=== PATIENT | female | born 1990 | race Caucasian/White ===

== ENCOUNTER 2022-02-19 08:14 | Outpatient (CLI) | payer BC, SELFPAY ==
--- NOTE | 2022-02-19 08:15 | CRLHL7_ITS ---
For Patients: As a result of the Cures Act, medical imaging exams and procedure reports are released immediately into your electronic medical record. You may view this report before your referring provider. If you have questions, please contact your health care provider. INDICATION: First trimester scan, establish dates. COMPARISON: None. TECHNIQUE: Real-time torres-scale imaging of the pelvis was performed. FINDINGS: Sonographic imaging demonstrates a single living intrauterine gestation. The embryo demonstrates a regular cardiac rate measuring 174 beats per minute. The embryo`s crown-rump length measurement of 2.1 cm corresponds to a gestational age of 8 weeks 5 days with a sonographic due date of September 26, 2022. There is a normal-appearing yolk sac measuring 2.9 mm. There are no gross abnormalities noted within the embryo at this early state of development. The placenta has not yet developed. The gestational sac has a normal appearance and there is no evidence of a perigestational hemorrhage. The amount of fluid within the sac appears appropriate for gestational age. The cervix is closed. The myometrium appears normal. The ovaries are of normal size. The right ovary measures 2.9 x 4.7 x 1.3 cm. The left ovary measures 5.1 x 3.6 x 4.1 cm. Small corpus luteum cyst of on the left. There are no suspicious fluid collections noted in the cul-de-sac. IMPRESSION: Normal first trimester OB ultrasound exam. Gestational age calculated at 8 weeks 5 days with a sonographic due date of September 26, 2022. Dictated by Darrion Ibarra MD @ 02/19/2022 10:08:21 AM (Electronically Signed)
== END 2022-02-19 08:15 | disposition home or self-care (01) ==
LOC: US 08:15
PROVIDERS: Visit Provider Physician Assistant
DX: Z34.91 Encounter for supervision of normal pregnancy, unspecified, first trimester (principal); Z3A.08 8 weeks gestation of pregnancy
CPT/HCPCS: 76817; 86592; 86703; 86762; 86787; 86803; 86850; 86900; 86901; 87086; 87340; 87491; 87591

== ENCOUNTER 2022-02-19 09:31 | Outpatient (CLI) | payer BC, SELFPAY ==
[2022-02-19 12:28] LABS: Hepatitis B Surface Antigen* Negative (Negative)
[2022-02-19 13:31] LABS: Hepatitis C Virus Antibody* Negative (Negative)
[2022-02-19 15:49] LABS: Chlamydia DNA Amplified* NOT DETECTED (No Detected); GC DNA Amplified* NOT DETECTED (No Detected)
[2022-02-19 16:37] LABS: HIV 1/2/P24 Combo Screen* Negative (Negative)
[2022-02-20 15:37] LABS: Rapid Plasma Reagin (RPR) Non Reactive (Non Reactive)
[2022-02-20 17:34] LABS: Varicella-Zoster Virus Ab, IgG 740.2 IV
[2022-02-20 17:39] LABS: Rubella Antibody IgG 16.3 IU/mL
== END 2022-02-19 09:32 | disposition home or self-care (01) ==
PROVIDERS: Visit Provider Physician Assistant
DX: Z34.91 Encounter for supervision of normal pregnancy, unspecified, first trimester (principal); Z3A.08 8 weeks gestation of pregnancy; Z12.4 Encounter for screening for malignant neoplasm of cervix
CPT/HCPCS: 86592; 86703; 86762; 86787; 86803; 86850; 86900; 86901; 87086; 87340; 87491; 87591; 87624; 88175

== ENCOUNTER 2022-05-14 12:14 | Outpatient (CLI) | payer BC, SELFPAY ==
--- NOTE | 2022-05-14 12:15 | CRLHL7_ITS ---
For Patients: As a result of the Century Cures Act, medical imaging exams and procedure reports are released immediately into your electronic medical record. You may view this report before your referring provider. If you have questions, please contact your health care provider. INDICATION: Evaluate anatomy. COMPARISON: 02/19/2022 TECHNIQUE: Real time torres scale imaging of the fetus was performed as well as color Doppler analysis of the umbilical vessels. FINDINGS: Sonographic imaging demonstrates a single living intrauterine gestation. Fetus demonstrates a regular cardiac rate of 150 beats per minute. Fetus has a variable position. The placenta lies fundal posterior without evidence of placenta previa. The edge of the placenta is located 7.6 cm from the internal cervical os. Amniotic fluid volume appears normal. Single deepest vertical pocket: 3.6 cm. The cervix is closed and measures 4.0 cm in length. The composite ultrasound gestational age is calculated at 20 weeks 5 days with an estimated sonographic due date of 09/26/2022. The estimated weight is 377 grams which lies at the 49th %. The following biometric measurements were obtained: Biparietal diameter: 5.0 cm/21 weeks 1 day 69th% Head circumference: 18.2 cm/20 weeks 4 days 35th% Abdominal circumference: 15.4 cm/20 weeks 4 days 40th% Femur length: 3.5 cm/21 weeks 0 days 51st% The HC/AC ratio measures: 1.18 range (1.06-1.25) On anatomic survey, there is a normal appearance of the cerebral ventricles, cavum septi pellucidi, cisterna magna and cerebellum. The nose, lips, and facial profile appear normal. The cervical, thoracic and lumbar spine are well visualized and appear normal. There is a normal four-chamber heart view and the left and right ventricular outflow tracts appear normal. The diaphragm and stomach appear normal. The kidneys and bladder also appear normal. There is a normal three-vessel cord and cord insertion site. The four extremities appear normal. IMPRESSION: Normal OB ultrasound exam with concordance of clinical and sonographic dating. No intrinsic abnormalities noted on anatomic survey. Dictated by Dario Mcgrath MD @ 05/14/2022 4:36:54 PM (Electronically Signed)
== END 2022-05-14 12:15 | disposition home or self-care (01) ==
LOC: US 12:14
PROVIDERS: Visit Provider Obstetrics & Gynecology
DX: Z34.92 Encounter for supervision of normal pregnancy, unspecified, second trimester (principal); Z3A.20 20 weeks gestation of pregnancy
CPT/HCPCS: 76805

== ENCOUNTER 2022-07-02 08:45 | Outpatient (CLI) | payer BC, SELFPAY | END 2022-07-02 08:46 | disposition home or self-care (01) | LOC: NFLDREF 07-04 05:24 | PROVIDERS: Visit Provider Physician Assistant | DX: Z34.92 Encounter for supervision of normal pregnancy, unspecified, second trimester (principal); Z3A.27 27 weeks gestation of pregnancy | CPT/HCPCS: 86592 ==

== ENCOUNTER 2022-07-08 08:09 | Outpatient (CLI) | payer BC, SELFPAY | END 2022-07-08 08:10 | disposition home or self-care (01) | LOC: NFLDREF 07-09 03:22 | PROVIDERS: Visit Provider Physician Assistant | DX: Z34.93 Encounter for supervision of normal pregnancy, unspecified, third trimester (principal) | CPT/HCPCS: 82951; 82952 ==

== ENCOUNTER 2022-09-19 12:34 | Inpatient (IN) | payer BC, SELFPAY ==
[2022-09-19] VITALS (33 sets, daily range): BP systolic 97–138; BP diastolic 51–76; PULSE 87–146; RESP 16; TEMP 36.6–36.8; O2SAT 97–100; BMI 33.8
[2022-09-19 12:13] LABS: Amnisure Rom* POSITIVE
[2022-09-19 15:43] LABS: Basophils Absolute Auto 0.03 K/uL (0.00-0.30); Basophils Percent Auto 0.3 % (0.0-3.0); Eosinophils Absolute Auto 0.03 K/uL (0.00-0.50); Eosinophils Percent Auto 0.3 % (0.0-7.0); Hematocrit 38.9 % (33.0-51.0); Hemoglobin* 13.2 gm/dL (12.0-16.0); Immature Granulocytes Abs Auto 0.05 K/uL (0.00-0.30); Immature Granulocytes Pct Auto 0.5 %; Lymphocytes Percent Auto 19.3 % (20-44); Mean Corpuscular HGB Conc 34 gm/dL (32-36); Mean Corpuscular Hemoglobin 29 pg (26-34); Mean Corpuscular Volume 85 fL (80-100); Monocytes Percent Auto 6.9 % (0.0-11.0); Neutrophils Percent Auto 72.7 % (42.0-72.0); Platelet Count* 222 K/uL (140-440); RDW Coefficient of Variation % 12.4 % (11.5-15.5); Red Blood Count 4.56 m/uL (4.00-5.20)
[2022-09-19 15:49] LABS: Slide Review Reflex No
[2022-09-19] MEDS: LACTATED RINGERS 1000 ML 1,000 ML 125 ML IV (16:01)
[2022-09-19] MEDS: OXYTOCIN 30 unit/500 ML in NS 30 UNIT/500 ML BAG IVPB (16:02)
--- NOTE | 2022-09-19 17:02 | P.LDBA_ITS ---
Subjective History of Present Illness Date Seen: 09/19/22 Narrative: Patient is being admitted to Labor and Delivery for delivery after SROM. She is a 32 year old at 39 0/7 weeks gestation. Her full history and physical was dictated by Dr. Hoffman on 09/04/22 . Please see this for details. Specific Issues/Plans Father of baby: Matthew. Baby: surprise gender. 1. History of Swrgv-Xdbmehylb-Elegc. Status post cardiac ablation in 2019. Currently asymptomatic * Referral placed: 05/13/2022 * [facility] on 06/30/22: normal EKG and echo, doing a 2 week episode evaluation (? holter).? Notes scanned into her EMR. * No follow-up necessary during the unless she develops an arrhythmia.? If she develops an arrhythmia during the peripartum period, beta- blockers or adenosine can be safely administered.? Risk of cardiac events during and peripartum is less than 10% * Level 2 ultrasound at [facility] 06/30/2022:? Normal anatomy.? Posterior placenta, no previa, breech presentation 2. GERD * omeprazole 20mg 3. 03/20/22 pap: NIL. +HPV (not 16/18) * Pap with HPV Co testing at her 6 week visit 4. Elevated?1 hour GTT, 163 * 3 hour GTT 07/08/2022:? Fasting 87, 1 hour 165, 2 hours 132, 3 hours 112: All normal. Flu shot:? Declined COVID vaccine:? Not vaccinated, declined Tdap- 07/17/22 OB - Problem Based A/P Additional Plan (1) SROM (spontaneous rupture of membranes): Status: Acute Plan 1. Recommend augmentation with Oxytocin due to SROM, patient agrees started and managed per protocol. 2. Patient desires epidural for pain management eventually. 3. GBS negative no need for antibiotic prophylaxis. 4. Category 1 tracing, continuous monitoring. OB Exam Physical Exam Vital signs: Temp Pulse Resp BP 98.2 F 97 16 125/76 09/19/22 16:05 09/19/22 15:54 09/19/22 16:05 09/19/22 15:54 Detailed Labor and Delivery Exam Patient Gravid: Yes Dilation (cm): 1 Effacement (%): 75 Cervix position: mid Consistency: soft Contraction Frequency: Irregular Tachysystole: No Contraction intensity: Mild Fetus (Single) Station: -2 Amniotic Membrane Status: SROM Amniotic Membrane Fluid Description: Clear Heart Rate Baseline: 140 Monitor Accelerations: Present Monitor Decelerations: None Email Marketing Assistant Variability: Moderate (6-25)
[2022-09-19] MEDS: LACTATED RINGERS 1000 ML 1,000 ML 1025 ML IV (22:05)
[2022-09-19] MEDS: fentaNYL 250 MCG/5 ML inj 100 MCG EPIDURAL (22:30)
[2022-09-19] MEDS: LIDOCAINE 2% (PF) 5 ML VIAL EPIDURAL (22:33)
[2022-09-19] MEDS: ROPIVACAINE 0.2% 100 ml 100 ML 12 MG EPIDURAL (22:33)
--- NOTE | 2022-09-19 22:42 | PM.ANBPRC ---
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) Tachycardia ?R00.0 - Tachycardia, unspecified (ICD-10) Normal endoscopy Gastroesophageal reflux disease ?K21.9 - Gastro-esophageal reflux disease without esophagitis (ICD-10) Surgical History (Updated 02/19/22 @ 09:26 by Ruma Pena PA-C) History of cardiac radiofrequency ablation ?Z98.890 - Other specified postprocedural states (ICD-10) Family History (Updated 02/19/22 @ 09:30 by Ruma Pena PA-C) Father High blood pressure Maternal Grandmother Breast cancer Paternal Grandmother Breast cancer Paternal Grandfather Stroke Social History What is your current living situation: I presently have a place to live Problems where you live: no known problems In the past 12 months, utilities in danger of being shut off: no In the past 12 mos, have been you worried that your food would run out before you had money to buy more?: never true In the past 12 mos, the food you bought just didn't last and you didn't have money to buy more?: never true Smoking Status: Former smoker How often does anyone, including family, friends and others, physically hurt you: How often does anyone, including family, friends and others, insult or talk down to you: How often does anyone, including family, friends and others, threaten you with harm: How often does anyone, including family, friends and others, scream or curse at you: Little interest or pleasure in doing things: several days Feeling down, depressed, or hopeless: not at all Meds Home Medications and Allergies Home Medications Medication Instructions Recorded Confirmed Type acetaminophen 325 mg tablet 325 mg PO ONCE PRN 02/19/22 09/19/22 History (Tylenol) omeprazole magnesium 20 mg 20 mg PO QDAY 02/19/22 09/19/22 History capsule,delayed release (Acid Telecommunicator (omeprazole)) prenat.vits,libby,asv-fluu-eiaoi 1 tab PO QDAY 02/19/22 09/19/22 History diphenhydramine HCl 25 mg tablet 25 mg PO QHS PRN 05/14/22 09/19/22 History (Benadryl Allergy) magnesium 250 mg tablet 500 mg PO QDAY 05/14/22 09/19/22 History calcium carbonate 200 mg calcium 200 mg PO BID 09/04/22 09/19/22 History (500 mg) chewable tablet (Tums) Allergies Allergy/AdvReac Type Severity Reaction Status Date / Time benzoyl peroxide Allergy Verified 09/18/22 15:07 Results Labs Labs: Laboratory Results - last 24 hr 09/19/22 09/19/22 12:05 15:36 WBC 10.80 RBC 4.56 Hgb 13.2 Hct 38.9 MCV 85 MCH 29 MCHC 34 RDW Coeff of Chapo 12.4 Plt Count 222 Neut % (Auto) 72.7 H Lymph % (Auto) 19.3 L [place] % (Auto) 6.9 Eos % (Auto) 0.3 Baso % (Auto) 0.3 Neut # (Auto) 7.90 H Lymph # (Auto) 2.10 [place] # (Auto) 0.70 Eos # (Auto) 0.03 Baso # (Auto) 0.03 Membrane Rupture POSITIVE Blood Type A Positive Antibody Screen NEGATIVE Vital Signs Vital Signs: Last Vital Signs Temp 97.9 F 09/19/22 20:57 Pulse 102 H 09/19/22 22:36 Resp 16 09/19/22 20:57 BP 118/56 L 09/19/22 22:36 Pulse Ox 98 09/19/22 22:34 Weight: 98.112 kg Height: 170.18 cm Anesthesia Procedures Epidural Insertion Patient Location: OB Start Time: 22:00 Stop Time: 23:00 Start Date: 09/19/22 Stop Date: 09/19/22 Reason for Block: primary anesthetic Patient Position: sitting Performed By: Aleks Jiménez Preanesthetic Checklist: IV checked, risks and benefits discussed, surgical consent, monitors and equipment checked, pre-op evaluation, timeout performed and anesthesia consent Prep: chlorhexidine gluconate Monitoring: blood pressure monitoring, cardiac rehabilitation specialist, continuous pulse oximetry and heart rate Approach: midline Vertebral Space: lumbar (1-5) Needle Type: Tuohy needle Injection Technique: continuous catheter Needle gauge: 17 Needle Length (cm): 10 cm Needle Insertion Depth (cm): 6 Catheter Gauge: 19 Catheter Type: multi-orifice Catheter at skin depth (cm): 12 Test Dose Result: negative and lidocaine 1.5% with epinephrine 1 to 200,000 Events: other
[2022-09-20] VITALS (70 sets, daily range): BP systolic 88–183; BP diastolic 47–133; PULSE 73–196; RESP 16–18; TEMP 36.6–36.9; O2SAT 93–100
[2022-09-20] MEDS: LACTATED RINGERS 1000 ML 1,000 ML 1025 ML IV (00:54)
--- NOTE | 2022-09-20 04:10 | PM.OBPNL ---
Subjective Time Seen by Provider: 03:10 Date Seen: 09/20/22 Narrative: Okay Objective Vital Signs: Last Vital Signs Temp 98.1 F 09/20/22 03:10 Pulse 106 H 09/20/22 02:59 Resp 16 09/20/22 01:59 BP 115/57 L 09/20/22 02:59 Pulse Ox 97 09/20/22 03:57 Pelvic Exam Dilation (cm): 10 Effacement (%): 100 Station: +1 Contractions Monitor mode: External Contraction pattern: Regular Contraction intensity: Moderate Pitocin Rate (mU/min): 9 Assessment Station: 0 Amniotic Membrane Status: SROM Status: Category ll Heart Rate Baseline: 140 Forming Roll Operator Heavy Duty Variability: Moderate (6-25) Monitor Accelerations: Present Monitor Decelerations: Late Plan Plan: I was called in to evaluate patient at bedside at around 3am, nurses concerned about bleeding with cervical checks and abnormal progression of labor. Patient found complete and +1 station. Recommended to start pushing and she did, with pushing recurrent late decelerations noted. Oxytocin was d/c, fluid bolus given and patient repositioned. Tracing back to a baseline of 140bpm with moderate variability, decelerations resolved. Patient with frequent uterine contractions even after d/c oxytocin and baby tolerating, no active bleeding. Recommendation given to wait at least 30 minutes and if tracing continues to be reassuring to resume pushing efforts. If with pushing there is concern for repetitive significant decelerations will need to talk about concerns for abruptio and recommendation for delivery. Will follow up closely.
[2022-09-20] MEDS: LACTATED RINGERS 1000 ML 1,000 ML 125 ML IV ×3 (04:11→08:20)
[2022-09-20] MEDS: ROPIVACAINE 0.2% 100 ml 100 ML 12 MG EPIDURAL (05:50)
--- NOTE | 2022-09-20 07:00 | PM.OBPNL ---
Subjective Date Seen: 09/20/22 Narrative: Would like to try a vacuum if possible. Objective Vital Signs: Last Vital Signs Temp 98.1 F 09/20/22 03:10 Pulse 98 09/20/22 06:58 Resp 16 09/20/22 01:59 BP 122/62 09/20/22 06:58 Pulse Ox 98 09/20/22 04:32 Pelvic Exam Dilation (cm): 10 Effacement (%): 100 Station: +2 with contraction Contractions Monitor mode: External Contraction pattern: Regular Contraction intensity: Moderate Pitocin Rate (mU/min): 1 Assessment Station: +2 Amniotic Membrane Status: SROM Status: Category l Heart Rate Baseline: 140 Knocker Off Variability: Moderate (6-25) Monitor Accelerations: Present Monitor Decelerations: Early Plan Plan: Patient re evaluated, she was found complete at around 3am. She has pushed on and off since then. Baby has moved to +2 station with contractions, discussed risks vs benefits of attempting a vacuum assisted delivery vs proceeding with , she was interested in trying assisted vaginal delivery. Her bladder had been emptied, the vacuum cup was placed as posterior as I could since I suspect baby is OP and I made sure the cup did not include vaginal tissue. We waited for the next contraction and I increased pressure but patient was not pushing effectively and I was unable to really place traction and pull and also I started noticing some trickling of blood vaginally and I decided to discontinue efforts. Discussed concerns with patient. Oxytocin had been just restarted and this was discontinued immediately. NST is reactive w/o decelerations. Officially recommended delivery, discussed how procedure is performed, risks of surgery such as bleeding and needing blood products, infection, damage to organs nearby, blood clots. Discussed interventions to decrease risks, discussed how recovery after differs from that of a vaginal delivery. Discussed family centered approach. Informed consent signed. Anesthesia team notified.
[2022-09-20] MEDS: CEFAZOLIN 2 GM INJ IVP (07:26)
[2022-09-20] MEDS: AZITHROMYCIN 500 MG in 0.9 % SODIUM CHLORIDE 250 ml 250 ML 255 MG IVPB (07:30)
[2022-09-20] MEDS: TRANEXAMIC ACID 100 MG/ML INJ 1000 MG IV (07:53)
--- NOTE | 2022-09-20 08:46 | P.OBPRC_ITS ---
Procedure Date of procedure: 09/20/22 Pre-op diagnosis: Arrest in descent, failed assisted vaginal delivery Post-op diagnosis: other (Bandl's ring, breech delivery ) Procedure Done: Global Will [facility] bill your pro fee for this procedure?: Yes Blood Loss Measurement Type: QBL (454mL) Bakri Used: No Surgeon: Roxanne Oden MD Anesthesia type: Epidural Findings: Contraction ring noted at mid uterus this prevented attempts to bring occiput towards incision. Live-born female , vertex OA, delivered breech, Apgars 1, 8 and 9 at 1, 5 and 10 minutes respectively. weight 3410g. Procedure Description: Procedures Operation Date: 09/20/22 07:45 Actual Procedure Side Surgeon p Section Roxanne Oden MD PROCEDURE: Primary low transverse section. After obtaining informed consent, the patient was taken to the operating room where epidural anesthesia was confirmed to be adequate. She was prepared and draped in the normal sterile fashion in the dorsal supine position with a leftward tilt. A Pfannenstiel skin incision was made with a scalpel about 2 cm above symphysis pubic bone, 8-10 cm in length. This incision was carried down to the underlying layer of fascia with the Bovie and scalpel. The fascia was incised in the midline and the incision extended laterally. The rectus muscles were then in the midline. The Fausto O retractor was then placed into the incision. Bladder flap performed utilizing Metzenbaum scissors, Fausto retractor was removed and replaced. The lower uterine segment was then incised in a transverse fashion with the scalpel. Upon entry into the uterus, clear amniotic fluid was noted. The uterine incision was extended cephalo caudally with blunt finger fractionation.I attempted to bring occiput towards incision baby was OA and shoulders transverse. I first attempted to rotate baby to a OT position, I was unable to fit my hand in the pelvis, vaginal assistance was made by OB nurse lifting the occiput little movement was noted with these interventions and I discontinued these attempts and decided to deliver breech. I was bale to grab feet an these were brought to the incision and then sacrum/buttocks were brought to incision and with fundal pressure fetus was delivered up to scapulas, hips were then grasped with a lap and gently assisted delivery of the arms and head. Baby was seen to be limp and pale and the cord was immediately doubly clamped and cut, and the infant was handed off the field to [facility] for evaluation by professor of latin american studies who started resuscitation intervention immediately. The placenta was delivered spontaneously with umbilical cord traction and fundal massage. The uterus was cleared of all clots and debris. Small hysterotomy extension to the left lower uterine segment noted. The uterine incision was reapproximated in a running locking fashion with 0 Vicryl suture. A 2nd layer of the same suture was used to imbricate in horizontal fashion. Some bleeding areas of the hysterotomy were managed with Chromic 2-0 in figure of 8 manner, this achieved hemostasis. The gutters were inspected and cleared of blood clot. All instruments and retractors were removed. The subfascial tissues were carefully inspected and hemostasis assured. Subcutaneous tissue approximated with Vicryl 3-0. The fascia was reapproximated in a running fashion with a l ooped 0 Vicryl suture. The subcutaneous tissues were irrigated, inspected and hemostasis was assured. The subcutaneous fat layer was reapproximated with interrupted sutures of 3-0 Vicryl. The skin was closed in a subcuticular fashion with 4-0 Vicryl. LiquiBand and dressing were applied. The patient tolerated the procedure well. Sponge, lap, needle, and instrument counts were reported as correct x2. The patient was taken to the recovery room, awake, and in stable condition. She did receive 2 grams of IV Ancef and 500mg of Azithromycin preoperatively also 1g of TXA after cord clamp. Complications: Bandl's ring, difficult delivery, delivered breech Condition: stable Disposition: floor [place] total score - 1 minute: 1 total score - 5 minute: 8 total score - 10 minute: 9
--- NOTE | 2022-09-20 09:16 | W.ANESCHARGE ---
Anesthesia Charges Start Date/Time Anesthesia Start Date: 09/20/22 Anesthesia Start Time: 07:19 Stop Date/Time Anesthesia Stop Date: 09/20/22 Anesthesia Stop Time: 09:07 Summary Emergency: PSYCHIATRY PHYSICIAN
--- NOTE | 2022-09-20 09:29 | P.NB_ITS ---
Nerve Block Nerve Block Time Seen by Provider: 08:55 Date Seen: 09/20/22 Type of block requested by surgeon for post-operative analgesia: TAP Side: bilateral Time out performed: Yes Verification of patient name: Yes Verification of date of : Yes Site marking: not applicable Name of person performing procedure: calixto Continuous monitoring Was continuous monitoring of O2 sat, B/P, cardiac cath tech, recorded every 15 minutes?: Yes Procedure Checklist: sterile prep, needles and gloves Ultrasound guided. Images saved: Yes Medications given in 5ml increments after negative aspiration: Marcaine %: 0.25 mL: 30 Needle gauge: 20 and Exparel mL: 10 Needle gauge: 20 Patient tolerated procedure well: Yes Block Charges Block Charge (with Pro Fee): TAP Bilateral Use of Ultrasound Machine for Block: Yes- US Guidance/pain block
[2022-09-20] MEDS: KETOROLAC 30 MG/ML inj IVP ×2 (14:48→20:53)
[2022-09-21] VITALS (11 sets, daily range): BP systolic 111–126; BP diastolic 76–85; PULSE 73–90; RESP 16; TEMP 36.7–36.8; O2SAT 95–99
[2022-09-21] MEDS: ACETAMINOPHEN 500 MG TABLET 1000 MG PO ×4 (01:31→21:03)
[2022-09-21] MEDS: KETOROLAC 30 MG/ML inj IVP ×2 (03:30→09:26)
[2022-09-21 06:45] LABS: Hemoglobin* 11.5 gm/dL (12.0-16.0)
[2022-09-21] MEDS: DOCUSATE SODIUM 100 MG CAPSULE PO (07:40)
--- NOTE | 2022-09-21 07:40 | P.OBPN_ITS ---
OB - PN: A/P Assessment and Plan (1) care and examination immediately after delivery: Status: Acute (2) Status post section: Status: Acute (3) Lactating mother: Status: Acute Plan day: 1 Plan: routine postop care Comments: Post-op Day 1 Routine care May see if desired. Anticipate discharge tomorrow 09/22, or the following day 09/23. OB - PN: Subj Subjective Date Seen: 09/21/22 Interval history: Sarita is a 32 y.o. who was admitted to L & D for SROM. She progressed to complete but made minimal progress with pushing. Vacuum was attempted with 1 pull but aborted after increased bleeding was noted. It was recommended to proceed with section. She had an uncomplicated .? Patient comments: no complaints, pain well controlled, incisional pain, tolerating diet and flatus present status: and doing well Narrative: Sarita is a 32 y.o. who was admitted to L & D for SROM. ?She had an uncomplicated .?The patient feels well. ?The pain is well controlled with current medications. ?She has no new complaints. ?She is breast feeding and reports things are going ok.? the patient has done well.? Vitals have been stable.? She has remained afebrile.? Has a good appetite, is tolerating a general diet. ?She is voiding without difficulty.? She is passing gas and has not had a bowel movement.? She is ambulating and denies any dizziness.? Has Sm all amount of rubra lochia. OB - PN: Obj Exam Physical Exam: Vital signs: Temp Pulse Resp BP Pulse Ox O2 Del Method 98.2 F 81 16 118/82 96 Room Air 09/21/22 03:36 09/21/22 03:36 09/21/22 05:15 09/21/22 03:36 09/21/22 03:36 09/21/22 03:36 Narrative: GENERAL APPEARANCE:? normal affect, alert, no distress MOOD:? appropriate CHEST:? clear to auscultation HEART:? regular rate and rhythm ABDOMEN:? soft, non-tender the uterine fundus is At Umbilicus, Midline and is appropriate for the stage of recovery. PERINEUM:? mild edema of the perineum EXTREMITIES:? normal and no edema Incision: Dressing in place, clean, dry, intact; to be removed this am. Urinary Catheter Management: Urethral: Cath placed during this visit: yes, but has since been removed by the nurse Reason for continuing: decision to DC catheter Insertion date: 09/19/22 Insertion time: 23:30 Removal date: 09/20/22 Removal time: 21:45 OB - PN: Obj Data Labs Labs: Laboratory Results - last 24 hr 09/21/22 06:24 Hgb 11.5 L
[2022-09-21] MEDS: IBUPROFEN 600 MG TABLET PO (17:55)
[2022-09-22 00:18] VITALS: BP 122/75; PULSE 70; RESP 16; TEMP 36.7; O2SAT 97
[2022-09-22] MEDS: IBUPROFEN 600 MG TABLET PO ×3 (00:21→16:37)
[2022-09-22] MEDS: ACETAMINOPHEN 500 MG TABLET 1000 MG PO ×2 (06:41→12:48)
[2022-09-22] MEDS: OXYCODONE 5 MG TABLET PO (06:42)
--- NOTE | 2022-09-22 07:46 | PM.OBDSCS1 ---
DS: Providers Provider Time Seen by Provider: 07:46 Date Seen: 09/22/22 Date of admission: 09/19/22 12:34 Primary care physician: Not a Local Provider Admitting Clinician: Roxanne Oden MD Attending Physician on discharge: Roxanne Oden MD Date of Discharge: 09/22/22 DS: Diagnosis Discharge Diagnosis (1) Status post section: Status: Acute (2) Lactating mother: Status: Acute (3) care and examination immediately after delivery: Status: Acute Exam Narrative: Exam Narrative: VSS. ?Afebrile GENERAL APPEARANCE: ?normal affect, alert, no distress MOOD: ?appropriate HEENT: normocephalic, neck supple, full ROM CHEST: ?Symmetrical chest wall movement. ?Normal respiratory effort. ?Clear to auscultation HEART: ?regular rate and rhythm ABDOMEN: ?soft, non-tender. Uterine fundus is firm, at Umbilicus, Midline and is appropriate for the stage of recovery. ?Bowel sounds present. EXTREMITIES: ?normal and trace edema SKIN: warm, dry. ? ?Incision clean/dry/well approximated. ?No signs of infection noted. Const: Vital Signs, click to edit/add: Vital Signs - 24 hr 09/21/22 09:38 09/21/22 16:49 09/22/22 00:18 Temperature 98.1 F 98.2 F 98.0 F Pulse Rate [Pulse Oximeter] 73 90 70 Respiratory Rate 16 16 16 Blood Pressure [Ri ght Arm] 126/85 119/84 122/75 Pulse Oximetry 96 95 97 Oxygen Delivery Me thod Room Air Room Air Room Air OB - DS: Summary Hospital Course Hospital Course: Sarita is a 32 y.o. G 1 P 1 who was admitted to [facility] for SROM. ?She had an uncomplicated . ? The patient feels well. ?The pain is well controlled with current medications. ?She has no new complaints. ?She is breast feeding and reports things are going ok. Is using a nipple shield to help baby latch.? the patient has done well.? Vitals have been stable.? She has remained afebrile.? Has a good appetite, is tolerating a general diet. ?She is voiding without difficulty.? She is passing gas and has had a small bowel movement.? She is ambulating and denies any dizziness.? Has Small amount of rubra lochia. She is undecided about prevention. Problems: none plan: Discharge home with baby. Follow up in 2 weeks and 6 weeks. , may follow up with if needed Peripartum Data Procedures: Procedures Operation Date: 09/20/22 07:45 Actual Procedure Side Surgeon p Section Roxanne Oden MD complications: none [place] Infant Gender: Female Infant Discharge Plan: Home Status at Discharge Functional status at discharge: independent ambulation Overall status at discharge: patient is progressing back to baseline Time Spent with Patient Time attestation: Total time spent providing and/or coordinating discharge services: Time spent: Less than 30 minutes Discharge Plan Discharge Disposition: Home, Self-Care Date of Admission: 09/19/22 12:34 Attending Provider on Discharge: Pratibha Jett Primary Care Provider: Provider,Not a Local Condition: Stable Anticipated Discharge Date/Time: 09/22/22 16:00 Discharge Medications: New docusate sodium 100 mg Capsule 100 mg PO BID PRNQty: 100 0RF Rx Instructions: Take 1 cap 1-2 times a day as needed for constipation ibuprofen 600 mg Tablet 600 mg PO Q6H PRN (Reason: Pain) Qty: 60 0RF oxycodone 5 mg Tablet 5 - 10 mg PO Q4H PRN (Reason: Pain) Qty: 20 0RF Continued omeprazole magnesium [Acid Wrecker Operator (omeprazole)] 20 mg capsule,delayed release(DR/EC) 20 mg PO QDAY acetaminophen [Tylenol] 325 mg tablet 325 mg PO ONCE PRN prenat.vits,libby,[id number] Tablet 1 tab PO QDAY calcium carbonate [Tums] 200 mg calcium (500 mg) tablet,chewable 200 mg PO BID magnesium 250 mg tablet 500 mg PO QDAY Discontinued diphenhydramine HCl [Benadryl Allergy] 25 mg tablet 25 mg PO QHS PRN Discharge Orders: Discharge Order (Routine); Ordered 09/22/22 Ordered By: Pratibha Jett Patient Education: OB Over the Counter Medication Information, OB /Breast Feeding Additional Instructions: Follow up in 2 weeks and 6 weeks No driving while taking oxycodone. Must also be able to slam on breaks in an emergency and twist to look behind you. Activity Level: Activity as Tolerated Discharge Diet: Regular Follow Up Appointments: Provider,Not a Local [Primary Care Provider] - Forms: [employer]th Info Instructions
[2022-09-22] MEDS: DOCUSATE SODIUM 100 MG CAPSULE PO (08:21)
[2022-09-22 08:25] VITALS: BP 115/73; PULSE 79; RESP 16; TEMP 36.3; O2SAT 97
[2022-09-22 08:33] VITALS: TEMP 36.3
[2022-09-22 16:05] VITALS: BP 117/77; PULSE 72; RESP 18; TEMP 36.7; O2SAT 98
== END 2022-09-22 17:25 | disposition home or self-care (01) | DRG 540 ==
LOC: OB OUT 09-23 08:40
PROVIDERS: Admitting Provider Obstetrics & Gynecology; Visit Provider Obstetrics & Gynecology
PROC: 10D00Z1 Extraction of Products of Conception, Low, Open Approach (ICD-10-PCS; CPT 59514; principal; 2022-09-20 07:30)
DX: O66.5 Attempted application of vacuum extractor and forceps (principal); K21.9 Gastro-esophageal reflux disease without esophagitis; O99.42 Diseases of the circulatory system complicating childbirth; I45.6 Pre-excitation syndrome; O32.4XX0 Maternal care for high head at term, not applicable or unspecified; G89.18 Other acute postprocedural pain; Z3A.39 39 weeks gestation of pregnancy; Z37.0 Single live birth
CPT/HCPCS: 01967; 01968; 36415; 59025; 64488; 76942; 84112; 85018; 85025; 86850; 86900; 86901; 88307; 99140; 99213; A9270; C9290; J0456; J0690; J1885; J2250; J2274; J2370; J2405; J2590; J2765; J2795; J3010; J3490; J7050; J7120

== ENCOUNTER 2022-12-02 09:28 | Outpatient (CLI) | payer BC, SELFPAY ==
--- NOTE | 2022-12-02 17:00 | W.PM.LAC.MC ---
Consult Note - Mom Date of Visit Date of visit: 12/02/22 senior wind energy consultant: Sarita Nelson Visit Code: Visit Patient's Information Phone number: [phone] : 1 Para: 1 Allergies benzoyl peroxide Allergy (Verified 12/17/22 16:02) Mother's Medical History: Medical History Work Plans: returns to work in about two weeks Delivery Information Delivery type: Primary C/S; Labored Weeks Gestation: 39.1 Gestational Age: AGA Weight: 3.41 kg Discharge Weight: 3.169 kg Baby's Information Baby's Age at Visit: 10 weeks Baby's Provider or Clinic: Dr. Thomas Reason for Consult Reason for Consult: post frenotomy visit Past Experience Past Experience: No Current Frequency of Day Feedings: about every 2 - 3 hours Frequency of Night Feedings: once overnight Both Breasts: Yes (sometimes) Suck: not very aggressive Latch: fairly wide Length of Time: 20 - 30 minutes Pumping Pumping: Yes (occasionally) Quantity Pumped: 2 - 9 oz total Supplementing EMB Supplement: Yes (occasionally) Formula Supplement: No Baby Elimination Number of Wet Diapers a Day: 6 - 8/day Number of BM a Day: 2 - 3/day Breast/Nipple Condition Breast Information: WNL Onsite Pre-Feed weight: 5.222 kg Post-Feed weight: 5.368 kg Milk Transferred (mL): 146 Assessments/Interventions Assessments/Interventions: Met with mom and this now 10 week old ex- term AGA baby for consult. 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 A frenotomy was done on 11/24/22. Mom reports since then baby has sometimes nursed without the shield, but usually still needs it. She's nursing every 2 - 3 hours during the day and usually once overnight. Mom sometimes offers both sides, but states baby usually seems satisfied after one side. She only pumps occasionally and depending on the time of day can get between 2 - 9 oz total. She and dad occasionally offer a bottle, but state baby has a hard time with it and feedings can last up to 60 minutes. Breasts WNL- symmetrical with rounded lower quadrants, intramammary distance is < 1.5 inches. Nipples are flat and a little short, but noemi with stimulation; no damage noted. Baby was last seen by PCP on 11/24 and since that visit has only gained one ounce, down 10% on the growth chart. Per mom she has equal ROM when turning her head and moving her extremities. Her palate is a little high. The upper frenulum is healing nicely. She isn't that aggressive when sucking on a finger and her tongue doesn't consistently extend over the gum line. There's pretty good lateralization and the lower frenulum also appears to be healing well. Mom latched baby to the right side without the nipple shield and the latch was fairly wide, mom was comfortable and felt a tugging/pulling at the breast. Baby nursed about 10 minutes before coming off. As mom often only offers one side, baby was weighed and had transferred 80 ml. We discussed that babies this age usually need 4 - 5 oz so mom offered the left side. She had more trouble so used the nipple shield for the first few minutes but was then able to remove it and baby nursed about 10 minutes without it. She was weighed again and had transferred an additional 66 ml for a total of 146 ml (4.9 oz). Attempted a few exercises to help baby extend her tongue over the gum line, but she was too fussy. These were reviewed with mom and she can try them at home. Plan: 1. Continue to nurse ALD but suggested offering both sides at each feeding. OK to use the nipple shield if needed, but keep practicing without it. 2. Suggested mom start pumping more consistently, maybe BID until she returns to work and then when at work pump for the feedings she is missing. 3. Suggested dad start offering a bottle daily for practice, gave ideas of bottle that are good for breastfed babies. 4. Try exercises we reviewed 3 - 5 times/day, 3 - 5 times each. 5. Continue with the stretches given by the dentist and f/u with her as scheduled. 5. Will f/u in [facility] on 12/07 with PCP for a four month C, but can always schedule a weight check with the clinic RN's or in . Tried to reassure mom her slow weight gain this week may have been d/t the frenotomy, but overall it's good and she had a great nursing session today. Meds Home Medications and Allergies Home Medications Medication Instructions Recorded Confirmed Type acetaminophen 325 mg tablet 325 mg PO ONCE PRN 02/19/22 12/17/22 History (Tylenol) omeprazole magnesium 20 mg 20 mg PO QDAY 02/19/22 12/17/22 History capsule,delayed release (Acid Welt Pocket Machine Operator (omeprazole)) prenat.vits,libby,[id number] 1 tab PO QDAY 02/19/22 12/17/22 History magnesium 250 mg tablet 500 mg PO QDAY 05/14/22 12/17/22 History Allergies Allergy/AdvReac Type Severity Reaction Status Date / Time benzoyl peroxide Allergy Verified 12/17/22 16:02
== END 2022-12-02 09:29 | disposition home or self-care (01) ==
LOC: OB LAC 09:29
PROVIDERS: Visit Provider Obstetrics & Gynecology
DX: Z39.1 Encounter for care and examination of lactating mother (principal)
CPT/HCPCS: 99211

== ENCOUNTER 2024-03-07 12:41 | Outpatient (CLI) | payer BC, SELFPAY ==
[2024-03-07 15:14] LABS: Chlamydia DNA Amplified* NOT DETECTED (No Detected); GC DNA Amplified* NOT DETECTED (No Detected)
[2024-03-07 20:53] LABS: Bacterial Vaginosis* Negative (Negative); Candida glab/krus NOT DETECTED (No Detected); Candida species DETECTED (No Detected); Trichomonas vaginalis NOT DETECTED (No Detected)
[2024-03-11 16:58] LABS: HSV 1 Subtype by PCR Not Detected; HSV 2 Subtype by PCR Not Detected; Herpes Simplex Subtype Source Tissue
== END 2024-03-07 12:42 | disposition home or self-care (01) ==
PROVIDERS: Visit Provider Registered Nurse
DX: N89.8 Other specified noninflammatory disorders of vagina (principal)
CPT/HCPCS: 81513; 87481; 87491; 87529; 87591; 87661

== ENCOUNTER 2024-08-16 08:19 | Outpatient (CLI) | payer BC, SELFPAY | END 2024-08-16 08:20 | disposition home or self-care (01) | PROVIDERS: PCP Registered Nurse; Visit Provider Registered Nurse | DX: Z00.01 Encounter for general adult medical examination with abnormal findings (principal); R00.2 Palpitations; Z13.6 Encounter for screening for cardiovascular disorders | CPT/HCPCS: 80053; 80061; 83735; 84443 ==